=== PATIENT | male | born 1950 | race Caucasian/White ===

== ENCOUNTER 2017-12-08 14:48 | Outpatient (REF) | payer MEDICARE, MEDICAID, SELFPAY ==
[2017-12-08 20:58] LABS: HCT 43.8 % (40.0-50.0); HGB 14.6 g/dL (13.5-17.5); Mean Corp. HGB Concentration 33.3 g/dL (32.0-36.0); Mean Corpuscular Hemoglobin 31.9 pg (27.0-33.0); Mean Corpuscular Volume 95.6 fL (80-95); Mean Platelet Volume 11.1 fL (8.0-11.0); Platelet Count 301 x1000/uL (130-400); RBC 4.58 m/cumm (4.50-6.00); RBC Distribution Width 13.1 % (11.8-14.1); White Blood Cell Count 9.56 k/cumm (4.4-10.8)
[2017-12-08 21:08] LABS: BUN 22 mg/dL (7-18); CREATININE 1.27 mg/dL (0.70-1.30); Calcium 8.8 mg/dL (8.5-10.1); Chloride 103 mmol/L (98-107); Glucose 123 mg/dL (70-100); Potassium 3.5 mmol/L (3.5-5.1); Sodium 139 mmol/L (136-145)
== END 2017-12-08 15:08 ==
LOC: NCHCN 14:48
PROVIDERS: PCP Physician Assistant; Visit Provider Internal Medicine
DX: I10 Essential (primary) hypertension (principal); I26.99 Other pulmonary embolism without acute cor pulmonale; E66.9 Obesity, unspecified
CPT/HCPCS: 80048; 85027

== ENCOUNTER 2018-06-12 08:46 | Outpatient (REF) | payer MEDICARE, SELFPAY ==
[2018-06-12 20:09] LABS: HCT 46.5 % (40.0-50.0); HGB 15.1 g/dL (13.5-17.5); Mean Corp. HGB Concentration 32.5 g/dL (32.0-36.0); Mean Corpuscular Hemoglobin 31.3 pg (27.0-33.0); Mean Corpuscular Volume 96.5 fL (80-95); Mean Platelet Volume 11.3 fL (8.0-11.0); Platelet Count 249 x1000/uL (130-400); RBC 4.82 m/cumm (4.50-6.00); RBC Distribution Width 13.2 % (11.8-14.1); White Blood Cell Count 5.62 k/cumm (4.4-10.8)
[2018-06-12 20:27] LABS: Anion Gap 6.2 mmol/L (3-11); BUN 15 mg/dL (7-18); CO2 29.8 mmol/L (21.0-32.0); CREATININE 0.88 mg/dL (0.70-1.30); Calcium 9.2 mg/dL (8.5-10.1); Chloride 104 mmol/L (98-107); Cholesterol 193 mg/dL (50-200); Glucose 100 mg/dL (70-100); HDL Cholesterol 48 mg/dL (40-60); LDL CHOLESTEROL 115 mg/dL (<100); Potassium 3.8 mmol/L (3.5-5.1); Sodium 140 mmol/L (136-145); TSH 1.78 uIU/mL (0.358-3.74); Triglyceride 98 mg/dL (30-150)
[2018-06-15 16:23] LABS: Testosterone, Free 9.75 ng/dL (3.47-13.0); Testosterone, Total 513 ng/dL (240-950)
== END 2018-06-12 09:06 ==
LOC: NCHCN 08:46
PROVIDERS: PCP Physician Assistant; Visit Provider Internal Medicine
DX: R53.83 Other fatigue (principal); I10 Essential (primary) hypertension; I26.99 Other pulmonary embolism without acute cor pulmonale; Z79.01 Long term (current) use of anticoagulants; N40.2 Nodular prostate without lower urinary tract symptoms
CPT/HCPCS: 80048; 80061; 83721; 84402; 84403; 85027; 84153; 84443

== ENCOUNTER 2018-12-06 17:11 | Outpatient (REF) | payer MEDICARE, SELFPAY ==
--- NOTE | 2018-12-06 16:00 | SKI_PTH ---
PATIENT: Abiodun Conn LOC: [facility] U#:[id number] AGE/SX: 68/M ROOM: RE12/06/[address]: Abiodun Puga : 1950 BED: DIS: 12/06/2018 SPEC #: [id number] RECD: 12/07/18 12:32 STATUS: BEL REStacy #: [id number] MASSIEL: 12/06/18 16:[address]: Abiodnu Puga DEPT: Surgical Specimen RECD BY: Delores Marin ENTERED: 12/07/18 12:33 SP TYPE: MEHREEN RUBIN DR: Guillaume Moore Tissues: 1 - SKIN BIOPSY(SHAVE/PUNCH) Procedures: SKIN LEVEL 4 Comments: [id number]
== END 2018-12-06 17:31 ==
LOC: NCHCN 17:11
PROVIDERS: PCP Physician Assistant; Visit Provider Internal Medicine
DX: L30.8 Other specified dermatitis (principal)
CPT/HCPCS: 88305

== ENCOUNTER 2019-06-06 18:32 | Outpatient (REF) | payer MEDICARE, SELFPAY ==
[2019-06-06 19:42] LABS: Anion Gap 7.9 mmol/L (3-11); BUN 22 mg/dL (7-18); CO2 30.1 mmol/L (21.0-32.0); CREATININE 0.96 mg/dL (0.70-1.30); Chloride 104 mmol/L (98-107); Glucose 94 mg/dL (74-106); LDL CHOLESTEROL 114 mg/dL (<100); Potassium 3.6 mmol/L (3.5-5.1); Sodium 142 mmol/L (136-145)
[2019-06-06 19:50] LABS: HCT 40.8 % (40.0-50.0); Mean Corp. HGB Concentration 34.3 g/dL (32.0-36.0); Mean Corpuscular Hemoglobin 32.7 pg (27.0-33.0); Mean Corpuscular Volume 95.3 fL (80-95); Mean Platelet Volume 10.8 fL (8.0-11.0); Platelet Count 280 x1000/uL (130-400); RBC 4.28 m/cumm (4.50-6.00); RBC Distribution Width 12.8 % (11.8-14.1); White Blood Cell Count 6.95 k/cumm (4.4-10.8)
[2019-06-10 11:19] LABS: PSA, Diagnostic 5.3 ng/mL (0.0-4.5)
== END 2019-06-06 18:52 ==
LOC: NCHCN 18:32
PROVIDERS: PCP Physician Assistant; Visit Provider Internal Medicine
DX: I10 Essential (primary) hypertension (principal); K21.9 Gastro-esophageal reflux disease without esophagitis; R97.20 Elevated prostate specific antigen [PSA]; L30.9 Dermatitis, unspecified
CPT/HCPCS: 80048; 83721; 85027; 84153

== ENCOUNTER 2019-12-19 17:04 | Outpatient (REF) | payer MEDICARE, SELFPAY ==
[2019-12-19 19:36] LABS: HCT 41.6 % (40.0-50.0); HGB 14.1 g/dL (13.5-17.5); MCH 32.6 pg (27.0-33.0); MCHC 33.9 % (32.0-36.0); MCV 96.3 fL (80-95); MPV 11.4 fL (8.0-11.0); Platelet Count 239 10^3/uL (130-400); RBC 4.32 10^6/uL (4.36-5.78); RDW 12.8 % (11.8-14.1); RDW-SD 45.6 fL; WBC 6.83 10^3/uL (4.4-10.8)
[2019-12-19 20:15] LABS: Calcium 9.1 mg/dL (8.5-10.1); TSH 1.13 uIU/mL (0.36-3.74); Vitamin B12 304 pg/mL (193-986)
[2019-12-19 21:08] LABS: Hemoglobin A1C 5.3 % (<5.7)
[2019-12-23 12:40] LABS: PSA, Diagnostic 5.3 ng/mL (0.0-6.5)
[2019-12-23 12:57] LABS: Albumin 53.5 % (55.8-66.1); Comment (See Note); Monoclonal Spike 6.6 % (None Seen); Total Protein 7.1 g/dL (6.3-8.2)
[2019-12-23 15:38] LABS: Immunotyping, Serum (See Note)
== END 2019-12-19 17:24 ==
LOC: NCHCN 17:04
PROVIDERS: PCP Physician Assistant; Visit Provider Internal Medicine
DX: I10 Essential (primary) hypertension (principal); G60.9 Hereditary and idiopathic neuropathy, unspecified; R97.20 Elevated prostate specific antigen [PSA]; R79.89 Other specified abnormal findings of blood chemistry
CPT/HCPCS: 85027; 82310; 82607; 83036; 83655; 83735; 84153; 84165; 84443; 86320

== ENCOUNTER → 2020-02-25 08:44 | Outpatient (BNVA) | payer MEDICARE, SELFPAY | PROVIDERS: PCP Physician Assistant; Referring Provider Internal Medicine; Visit Provider Psychiatry & Neurology Neurology | DX: I95.1 Orthostatic hypotension (principal); R43.2 Parageusia; G62.9 Polyneuropathy, unspecified; M48.061 Spinal stenosis, lumbar region without neurogenic claudication; G90.1 Familial dysautonomia [Riley-Day]; I73.9 Peripheral vascular disease, unspecified; R20.0 Anesthesia of skin; M79.10 Myalgia, unspecified site; I10 Essential (primary) hypertension | CPT/HCPCS: 99205 ==

== ENCOUNTER → 2020-05-04 12:16 | Outpatient (BNVA) | payer MEDICARE, SELFPAY | PROVIDERS: PCP Physician Assistant; Referring Provider Physician Assistant; Visit Provider Psychiatry & Neurology Neurology | DX: I95.1 Orthostatic hypotension (principal); R43.2 Parageusia; G62.9 Polyneuropathy, unspecified; G90.1 Familial dysautonomia [Riley-Day]; R20.0 Anesthesia of skin | CPT/HCPCS: 95910; 99214 ==

== ENCOUNTER 2020-06-11 19:56 | Outpatient (REF) | payer MEDICARE, SELFPAY ==
[2020-06-11 18:47] LABS: Bacteria Negative HPF (Negative); Crystals Negative HPF (Negative); Epithelial Cells Few HPF (Negative); RBC 0-2 HPF (0-2); WBC 0-2 HPF (0-5)
[2020-06-11 18:48] LABS: C & S Indicated? No; Casts 0-2 Hyaline LPF (Negative); Mucus Trace (Negative)
== END 2020-06-11 19:57 | disposition home or self-care (01) ==
LOC: NCHCN 19:56
PROVIDERS: PCP Physician Assistant; Visit Provider Internal Medicine
DX: R31.29 Other microscopic hematuria (principal)
CPT/HCPCS: 81015

== ENCOUNTER → 2020-11-03 12:42 | Outpatient (BNVA) | payer MEDICARE, SELFPAY | PROVIDERS: PCP Physician Assistant; Referring Provider Physician Assistant; Visit Provider Psychiatry & Neurology Neurology | DX: G62.9 Polyneuropathy, unspecified (principal); I95.1 Orthostatic hypotension; G90.1 Familial dysautonomia [Riley-Day]; R20.0 Anesthesia of skin; M19.90 Unspecified osteoarthritis, unspecified site | CPT/HCPCS: 99215 ==

== ENCOUNTER 2020-11-23 17:43 | Outpatient (REF) | payer MEDICARE, SELFPAY | END 2020-11-23 17:44 | disposition home or self-care (01) | LOC: NCHCN 17:43 | PROVIDERS: PCP Physician Assistant; Visit Provider Internal Medicine | DX: R31.9 Hematuria, unspecified (principal) | CPT/HCPCS: 87077; 87086; 87186 ==

== ENCOUNTER 2020-11-26 16:44 | Outpatient (REF) | payer MEDICARE, SELFPAY | END 2020-11-26 16:45 | disposition home or self-care (01) | LOC: NCHCN 16:44 | PROVIDERS: PCP Physician Assistant; Visit Provider Internal Medicine | DX: N39.0 Urinary tract infection, site not specified (principal) | CPT/HCPCS: 87077; 87086; 87186 ==

== ENCOUNTER 2021-01-07 15:12 | Outpatient (REF) | payer MEDICARE, SELFPAY ==
[2021-01-21 13:22] LABS: Testosterone, Free 3.84 ng/dL (3.28-12.2); Testosterone, Total 320 ng/dL (240-950)
== END 2021-01-07 15:13 | disposition home or self-care (01) ==
LOC: NCHCN 15:12
PROVIDERS: PCP Physician Assistant; Visit Provider Internal Medicine
DX: R60.9 Edema, unspecified (principal); D47.2 Monoclonal gammopathy; R63.4 Abnormal weight loss
CPT/HCPCS: 84402; 84403; 82040

== ENCOUNTER 2021-02-18 16:15 | Outpatient (REF) | payer MEDICARE, SELFPAY | END 2021-02-18 16:16 | disposition home or self-care (01) | LOC: NCHCN 16:15 | PROVIDERS: PCP Physician Assistant; Visit Provider Internal Medicine | DX: R31.0 Gross hematuria (principal); N39.0 Urinary tract infection, site not specified | CPT/HCPCS: 87086 ==

== ENCOUNTER 2021-03-24 15:31 | Outpatient (REF) | payer MEDICARE, SELFPAY | END 2021-03-24 15:32 | disposition home or self-care (01) | LOC: NCHCN 15:31 | PROVIDERS: PCP Physician Assistant; Visit Provider Nurse Practitioner Family | DX: J04.0 Acute laryngitis (principal) | CPT/HCPCS: 87070 ==

== ENCOUNTER 2021-04-14 16:25 | Outpatient (REF) | payer MEDICARE, SELFPAY ==
--- OUTSIDE RECORDS SUMMARY | 2021-04-14 16:30 | XMS_ITS | Encounter Summary ---
:1950 Author Care Team Providers Name Role Phone Abiodun Puga MD Primary Care Provider [phone] Albin Gonzalez General Surgeon [phone] Alex Vail MD Urologist [phone] Reason for Visit consent obtained Assessment and Plan Assessment Note Await cytology. Initiate 5 VERONICA. 1. Hira hematuria Recurrent gross painless hemat uria which appears to localize to friable BPH. Options include a 5 alpha reductase inhibitor or prostate surgery. We will start with the former. Side effects discussed. Hopefully over time, he will get some downsizing with improvement in symptoms. We will have to assess his future PSA's with regard to a 50% anticipated reduction du e to the 5 VERONICA. Should he develop ongoing bleeding or significant clot retention, which he is at risk for, he should call or page. ? finasteride 5 mg tablet ? levofloxacin 250 mg tablet ? phenazopyridine 95 mg tabl et 2. Recurrent urinary tract infec tion 1 or 2 UTI's in the last year. Phimosis and BPH likely contributory. He should consider dorsal slit or circumcis ion. 3. Lower urinary tract symptoms due to benign prostatic hypertrophy Moderately severe mixed lower urinary tract symptoms, likely multifactorial. Significant BPH with mayra dder outlet obstruction. Friable BPH likely enhancing irritative symptoms. Likely ne uropathic component related to his polyneuropathy. Initiate 5 alpha reducta se inhibitor, to help with the bleeding, and hopefully over time, the symptoms. Shoul d bleeding continue her symptoms progress, he would likely require a laser prostatecto my event what appears to be some sort of propensity towards bleeding and a probab le need for perioperative VTE prophylaxis given history of postoperative PE. 4. Raised prostate specific anti gen Mild PSA elevation, lower than 2009- baseline. Occult prostate cancer is unlikely an explanation for his weight l oss. 5. Phimosis Severe phimosis. Noncompliant with recommended clobetasol therapy. He should consider a dorsal slit or circumc ision if he could obtain preoperative clearance. ? urinalysis, dipstick, refl ex micro ? cytology, non-gynecologica l, unspecified specimen - per friable prostate 6. Unintentional weight loss No evidence of occult prostate cancer. Discussion Note: None recorded.Patient educational handouts: No information available. Plan of Care Reminders Provider Appointments Or 15 on or around Albin Lambert charles 03/14/2023 MD Lisa Lab Urinalysis, 01/15/2021 P_uro logy Dipstick, Reflex Micro ? Cytology, 01/15/2021 [facility] eduardo Non-gynecological, Hospital Lab Unspecified Specimen (Internal) Referral None ? ? recorded. Procedures None ? ? recorded. Surgeries None ? ? recorded. Imaging None ? ? recorded. Medications Name Start Date ? ? betamethasone dipropionate 0.05 % topical cream ? APPLY A THIN LAYER TO THE AFFECTED AREA(S) BY TOPICAL ROUTE TWICE DAILY Centrum Silver ? clarithromycin 500 mg tablet ? Take 1 tablet every 12 hours by oral route. clobetasol 0.05 % topical cream ? APPLY A THIN LAYER TOPICALLY TO TO THE AFFECTED AREA TWICE DAILY finasteride 5 mg tablet ? Take 1 tablet every day by oral route for 90 days. hydroxychloroquine 100 mg tablet ? Take 1 tablet every day by oral route. levofloxacin 250 mg tablet ? 2 tabs now phenazopyridine 95 mg tablet ? 2 tabs now tamsulosin 0.4 mg capsule ? Take 1 capsule every day by oral route. Medications Administered Name Date ? ? levofloxacin 250 mg tablet 8340-81-83N05:43:46 2 tabs now phenazopyridine 95 mg tablet [id number]:44: 30 2 tabs now Vitals Height Blood Pressure 5 ft 6.54 in 170/102 mm[Hg] Results Lab Results Date Name Specimen Result Interpretation Description Value Range Status Address ? 01/15/2021 Cytology, TISS ? Report (see ? Final No rth Non-gynecological, below) Country Unspecified Specimen Hospital Lab (Internal) : [address] 01/15/2021 Urinalysis, Urine ? Color Brown ? ? P _urology: Dipstick, Reflex clean [address] [facility] ? ? Urine ? Appearance Cloudy ? ? P_uro logy: clean [address] [facility] ? ? Urine ? Glucose Normal ? ? [facility]urolog y: [facility] ? ? Urine ? Bilirubin Negative ? ? P_ur ology: clean [address] [facility] ? ? Urine ? Ketones Negative ? ? P_urol ogy: clean [address] [facility] ? ? Urine ? Specific 1.025 ? ? P_urolo gy: clean [place] [address] [facility] [facility] ? ? Urine ? Blood Large ? ? P[facility]urology: clean [facility] ? ? Urine ? Ph 7.5 ? ? P[facility]urology: clean [facility] ? ? Urine ? Protein 3+ ? ? P_urolog y: clean [address] [facility] ? ? Urine ? Urobilinogen 0.2 ? ? P_u rology: clean [address] [facility] ? ? Urine ? Nitrite negative ? ? P_urol ogy: clean [address] [place] ? ? Urine ? Leukocyte Negative ? ? P_ur ology: clean [place] [address] [facility] Allergies Code Code System Name Reaction Severity Onset 723 RxNorm Amoxicillin Rash Mild to Moderate ? Penicillins Rash Mild to Moderate ? Problems Name Status Onset Date Source ? Pulmonary Embolism Active 01/22/2019 ? 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 Idiopathic Chronic Neuropathy Active 07/06/2020 ? Polyneuropathy Active 07/06/2020 ? Orthostatic Hypotension Active 07/06/2020 ? Osteoarthritis Active 07/06/2020 ? Taste Sense Altered Active 07/06/2020 ? Anesthesia of Skin Active 07/06/2020 ? Familial Dysautonomia Active 07/06/2020 ? Uses Two Crutches for Walking Active 12/14/2020 ? Acariasis Active ? History Carpal Tunnel Syndrome Active ? History Visual Disturbance Active ? History Benign Essential Hypertension Active ? Hi story Localized, Primary Osteoarthritis Active ? History Osteoarthritis of Knee Active ? History Joint Pain Active ? History Elbow Joint Pain Active ? History Joint Pain in Ankle and Foot Active ? His tory Backache Active ? History Raised Prostate Specific Antigen Active ? History Superficial Foreign Body in Forearm Active ? History Artificial Knee Joint Present Active ? Hi story Evaluation Procedure Active ? History Procedure on Joint Active ? History Procedure by Method Active ? History Pain in Left Knee Active ? History Closed Fracture of Right Femur Active ? H istory Spontaneous Rupture of Flexor Tendons Active ? History Procedures Date Name Performed by ? 03/14/2018 Colonoscopy Information not avai lable Notes: diverticular disease, polyp of colon ? Removal of Inferior Vena Caval Filter In formation not available ? Insertion of Inferior Vena Caval Informa tion not available Filter ? Carpal Tunnel Surgery Information not av ailable ? Knee Replacement Information not avai lable Notes: right side 2016 ? Hip Replacement Information not avai lable Notes: bilateral Vaccine List Vaccine Type influenza, seasonal, injectable 03/10/2010?0.5 mL influenza, seasonal, injectable, preserv ative free 03/09/2011 Tdap 03/10/2010?0.5 mL Social History Tobacco Smoking Status Former Smoker Notes: quit in 10 years ago, smokes 30 years 1ppw Are you currently employed? Y What is your code status? 0 How much tobacco do you chew? none What was the date of your most 03/14/2018 recent tobacco screening? Do you have an advanced Y directive? Do you or have you ever used Never used electronic e-cigarettes or vape? cigarettes In the 14 days before symptom N onset, have you had close contact with a laboratory-confirmed COVID-19 while that case was ill? 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 children What is your level of alcohol None Notes: pt reports not consumption? having consumed alco hol for couple of years Screened for Covid-19 Y Do you or have you ever used Never used smokeless tobacco smokeless tobacco? Which illicit or recreational none drugs have you used? Have you been to an area known N to be high risk for COVID-19? Drug Use N Have you recently traveled N abroad? N Family History Relation Problem Onset Age of Age Notes Father Arthritis (No N/A (No Notes) Information) Paternal Grandmother Arthritis (No N/A (No Not es) Information) Paternal Uncle Arthritis (No N/A (No Notes) Information) Paternal Aunt Arthritis (No N/A (No Notes) Information) Sister Neuropathy (No N/A (No Notes) Information) Functional Status Unknown. Past Encounters 01/15/2021 Hira Hematuria; Recurrent Urinary Tract Infection; Lower Urinary Tract Symptoms Due to Benign Prostatic Hypertrophy; Raised Prostate Specific Antigen; Phimosis; Unintentional Weight Loss Alex Vail MD: [address] [facility] [place] [address], Ph. History of Present Illness Note: <div>He returns for follow up on his phimosis after initiating topical therapy, and for cystoscopy in evaluation of his gross and microscopic hematuria.</div><div>
</div><div>Today's urine shows large blood. He said he has had gross hematuria as recently as .</div><div>
</div><div>His CT showed no upper tract lesions but did show an enlarged prostate and a thick walled bladder.</div><div>
</div>PSA 12/14 was 4.3, lower than prior baseline in 2010-02 so not likely that prostate cancer is the cause for his weight loss.<div>
</div><div>He did not reliably use the clobetasol for his foreskin. He says it is difficult to get it there.</div><div>
</div><div>He says his Eliquis was stopped this summer and that he is not on any blood thinners.
<div>
</div><div>His VEG F was negative suggesting against POEMS Syndrome as an explanation for his neuropathy and weight loss.</div><div>
</div><div>Poked himself in the eye last night. He says the skin is very sensitive. On evaluation he has conjunctival hemorrhage on the left and multiple skin lesions bleeding.
</div><div>
</div><div>Med list and problem list are updated.</div></div>Review of Systems: ROS as noted in the HPI Review of Systems None recorded. Physical Exam ? Notes: Depressed affect, no apparen t distress.

Genital exam shows an uncircumcised phallus with s evere, unretractable phimosis.
--- OUTSIDE RECORDS SUMMARY | 2021-04-14 16:30 | XMS_ITS ---
:1950 Author Care Team Providers Name Role Phone SYLVIE SMITH MD Primary Care Provider [phone] ANITA SCOTT General Surgeon [phone] MELANIE VAIL MD Urologist [phone] Allergies Code Code System Name Reaction Severity Status Onset 723 RxNorm Amoxicillin Rash Mild to Active ? Moderate Penicillins Rash Mild to Active ? Moderate Medications Name Status Start Date Stop Date ? ? aspirin 81 mg tablet,delayed release Completed ? 12/14/2020 Take 1 tablet every day by oral route. atenolol 50 mg tablet Completed ? 07/06/2020 betamethasone dipropionate 0.05 % topical cream Active ? Not available APPLY A THIN LAYER TO THE AFFECTED AREA(S) BY TOPICAL ROUTE TWI CE DAILY Centrum Silver Active ? Not available clarithromycin 500 mg tablet Active ? Not available Take 1 tablet every 12 hours by oral route. clobetasol 0.05 % topical cream Active ? Not available APPLY A THIN LAYER TO THE AFFECTED AREA(S) BY TOPICAL ROUTE 2 T IMES PER DAY Eliquis 2.5 mg tablet Completed ? 12/14/2020 finasteride 5 mg tablet Active ? Not avai lable Take 1 tablet every day by oral route for 90 days. gabapentin 300 mg capsule Completed ? 2020 Take 1 capsule 3 times a day by oral route. hydroxychloroquine 100 mg tablet Active ? Not available Take 1 tablet every day by oral route. Keflex 250 mg capsule Completed 08/25/2010 08/27/2010 1 (one) Cap: 4 times a day levofloxacin 250 mg tablet Active ? Not a vailable 2 tabs now naproxen 500 mg tablet Completed 05/12/2006 7 1 (one) Tablet: Twice daily nifedipine ER 30 mg tablet,extended release Completed ? 12/14/2020 Take 1 tablet every day by oral route. nifedipine ER 60 mg Completed ? 07/06/2020 tablet,extended release Percocet 5 mg-325 mg tablet Unknown 12/11/2006 Not available 1 (one) Tablet: TID permethrin 5 % topical cream Completed 03/25/2013 1 Cream: x1, repeat in a week phenazopyridine 95 mg tablet Active ? Not available 2 tabs now tamsulosin 0.4 mg capsule Active ? Not av ailable Take 1 capsule every day by oral route. torsemide 20 mg tablet Completed ? 1 warfarin 2 mg tablet Completed ? 12/27/2017 Problems Name Status Onset Date Source ? [...] Replacement Information not avai lable Notes: bilateral Results Lab Results Date Name Specimen Result Interpretation Description Value Range Status Address ? 01/15/2021 Cytology, TISS ? Report (see below) ? [place] Non-gynecological, Country Unspecified Hospi jac Lab Specimen (Interna l): [address] 01/15/2021 Urinalysis, Urine ? Color Brown ? ? P _urology: Dipstick, Reflex clean [address] [place], [place] ? ? Urine ? Appearance Cloudy ? ? P_uro logy: clean [address] [place], [place] ? ? Urine ? Glucose Normal ? ? P_urolog y: clean [address] [place], [place] ? ? Urine ? Bilirubin Negative ? ? P_ur ology: clean [address] [place], [place] ? ? Urine ? Ketones Negative ? ? P_urol ogy: clean [address] [place], [place] ? ? Urine ? Specific 1.025 ? ? P_urolo gy: clean [place] [address] [facility], [place] ? ? Urine ? Blood Large ? ? P_urology: clean [address] [place], [place] ? ? Urine ? Ph 7.5 ? ? P_urology: clean [address] [place], [place] ? ? Urine ? Protein 3+ ? ? P_urolog y: clean [address] [place], [place] ? ? Urine ? Urobilinoge 0.2 ? ? P_ur ology: clean n [address] [place], [place] ? ? Urine ? Nitrite negative ? ? P_urol ogy: clean [address] [place], [place] ? ? Urine ? Leukocyte Negative ? ? P_ur ology: clean [place] [address] Medic [address] [place], [place] 12/14/2020 Send Out, Misc. MISC ? S/O vascular ? [facility] endothelial [facility] L ab factor (Internal) : [address] ? ? MISC ? Status sent to ? Final [facility] lab Hospital L ab (Internal) : [address] 12/14/2020 PSA, Serum or S High PSA, Total 4.3 NG/mL 0. Final [place] Plasma 0- Country 4. Hospital L ab 0 (Internal) : NG [address] 12/14/2020 Go-roch Frozen MIS ? [id number] see below ? [facility] 12/17/2020 Countr y 02:42 pm Hospital Lab (Internal) : [address] 12/14/2020 Bladder Scan (PROC) ? Date and 12/14/2020 ? ? P[facility]urology: Time 1030 [facility] ? ? ? Amount in 2mL ? ? P_urol ogy: Bladder [facility] 12/14/2020 Urinalysis, Urine ? Color Kalani ? ? P _urology: Dipstick, Reflex clean [address] [facility] ? ? Urine ? Appearance Clear ? ? P_uro logy: clean [address] [facility] ? ? Urine ? Glucose Normal ? ? P_urolog y: clean [address] [place] [employer], [place] ? ? Urine ? Bilirubin Small ? ? P_urol ogy: clean [address] [employer], [place] ? ? Urine ? Ketones Trace ? ? P_urolog y: clean [address] [place] [employer], [place] ? ? Urine ? Specific 1.030 ? ? P_urolo gy: clean [place] [address] [employer] [facility] ? ? Urine ? Blood Small ? ? P_urology: clean [facility] ? ? Urine ? Ph 6.0 ? ? P_urology: clean [address] [facility] ? ? Urine ? Protein 3+ ? ? P_urolog y: clean [address] [facility] ? ? Urine ? Urobilinoge 0.2 ? ? P_ur ology: clean n [address] [facility] ? ? Urine ? Nitrite negative ? ? P_urol ogy: clean [facility] ? ? Urine ? Leukocyte Negative ? ? P_ur ology: clean [place] [address] [facility] 07/10/2020 Pathology Study TISS ? Report (see below) ? [facility] L ab (Internal) : [address] 03/14/2018 Pathology Study TISS - Report results ? Fi nal [facility] L ab (Internal) : [address] 10/19/2016 Venipuncture BLD ? Venpn* ? ? [facility] L ab (Internal) : [address] 10/19/2016 Prothrombin Time BLD High Pt 32.8 S 9. Fin al [place] [id number] Hospital L ab .7 (Internal) : S [address], [place] ? ? BLD ? Inr 3.2 ? Final [facility] Hospital L ab (Internal) : [address] [place] 08/26/2016 Venipuncture BLD ? Venpn* ? ? Final [facility] Hospital L ab (Internal) : [address], [place] 08/26/2016 Prothrombin Time BLD High Pt 34.4 S 9. [place] [id number] Hospital L ab .7 (Internal) : S [address], [place] ? ? BLD ? Inr 3.4 ? Final [facility] Hospital L ab (Internal) : [address], [place] 05/25/2016 Venipuncture BLD ? Venpn* ? ? Final [facility] Hospital L ab (Internal) : [address], [place] 05/25/2016 Prothrombin Time BLD High Pt 29.[address] L ab .7 (Internal) : S [address] ? ? BLD ? Inr 2.9 ? Final [facility] L ab (Internal) : [address], [place] Past Encounters 01/15/2021 Hira Hematuria; Recurrent Urinary Tract Infection; Lower Urinary Tract Symptoms Due to Benign Prostatic Hypertrophy; Raised Prostate Specific Antigen; Phimosis; Unintentional Weight Loss Melanie Vail MD: [address] [place] [phone], Ph. 12/14/2020 Hira Hematuria; Recurrent Urinary Tract Infection; Lower Urinary Tract Symptoms Due to Benign Prostatic Hypertrophy; Raised Prostate Specific Antigen; Phimosis; Unintentional Weight Loss; Axonal Neuropathy Melanie Vail MD: [address] [place] [phone], Ph. 07/10/2020 Skin Lesion Anita Scott MD: [address] [place] [phone], Ph. Social History Tobacco Smoking Status Former Smoker Notes: quit in 10 years ago, smokes 30 years 1ppw Vaccine List Vaccine Type influenza, seasonal, injectable 03/10/2010?0.5 mL influenza, seasonal, injectable, preserv ative free 03/09/2011 Tdap 03/10/2010?0.5 mL Plan of Care Reminders Provider Appointments None ? ? recorded. Lab None ? ? recorded. Referral None ? ? recorded. Procedures None ? ? recorded. Surgeries None ? ? recorded. Imaging None ? ? recorded. Vitals 01/15/2021 08:00AM Office 20 Height Blood Pressure 169.01 cm 170/102 mm[Hg] 12/14/2020 10:00AM Acute 20 Height Weight BMI Blood Pressure 169.01 cm 77.84 kg 27.2 kg/m2 122/68 mm[Hg] 07/10/2020 12:45PM Office 15 Height 169.01 cm 05/04/2020 Height Weight BMI Blood Pressure 169.01 cm 89.35 kg 31.3 kg/m2 108/66 mm[Hg] 05/31/2016 Height Weight Blood Pressure 172.72 cm 116.53 kg 152/68 mm[Hg] 09/14/2015 Height Weight Blood Pressure 172.72 cm 102.06 kg 179/89 mm[Hg] 07/21/2015 Height Weight Blood Pressure 172.72 cm 99.79 kg 140/90 mm[Hg] 06/30/2015 Height Weight Blood Pressure 172.72 cm 99.79 kg 158/90 mm[Hg] 06/09/2015 Height Weight Blood Pressure 172.72 cm 99.79 kg 198/82 mm[Hg] 05/19/2015 Height Weight Blood Pressure 172.72 cm 99.79 kg 156/60 mm[Hg] 04/28/2015 Height Weight Blood Pressure 172.72 cm 99.79 kg 182/82 mm[Hg] 04/21/2015 Height Weight Blood Pressure 172.72 cm 99.79 kg 200/70 mm[Hg] 04/02/2015 Height Weight Blood Pressure 172.72 cm 99.79 kg 190/100 mm[Hg] 03/24/2015 Height Weight Blood Pressure 172.72 cm 99.79 kg 160/90 mm[Hg] 03/05/2015 Height Weight Blood Pressure 172.72 cm 99.79 kg 134/76 mm[Hg] 02/24/2015 Height Weight Blood Pressure 172.72 cm 99.79 kg 128/78 mm[Hg] 12/25/2014 Height Weight Blood Pressure 172.72 cm 99.79 kg 140/72 mm[Hg] 09/02/2014 Height Weight Blood Pressure 172.72 cm 99.79 kg 164/76 mm[Hg] 03/25/2013 Height Weight Blood Pressure 172.72 cm 101.02 kg 142/76 mm[Hg] 01/09/2013 Height Weight Blood Pressure 170.82 cm 98.47 kg 128/76 mm[Hg] 04/20/2012 Height Weight Blood Pressure 170.82 cm 95.25 kg 124/78 mm[Hg] 03/20/2012 Height Weight Blood Pressure 170.82 cm 95.25 kg 152/76 mm[Hg] 03/14/2012 Height Weight Blood Pressure 170.82 cm 95.25 kg 140/64 mm[Hg] 08/05/2011 Height Weight Blood Pressure 172.72 cm 102.29 kg 172/86 mm[Hg] 05/03/2011 Height Weight Blood Pressure 172.72 cm 102.29 kg 153/80 mm[Hg] 03/09/2011 Height Weight Blood Pressure 172.72 cm 102.29 kg (1) 126/70 mm[Hg] (2) 158/68 mm[Hg] 09/08/2010 Height Weight Blood Pressure 172.72 cm 100.83 kg 158/64 mm[Hg] 03/10/2010 Height Weight Blood Pressure 172.72 cm 100.24 kg 120/76 mm[Hg] 09/02/2009 Weight Blood Pressure 99.79 kg 124/74 mm[Hg] 03/16/2009 Weight Blood Pressure 102.51 kg 120/74 mm[Hg] 12/11/2007 Weight Blood Pressure 100.24 kg (1) 132/70 mm[Hg] (2) 138/74 mm[Hg] 12/11/2006 Weight Blood Pressure 103.87 kg (1) 130/62 mm[Hg] (2) 130/68 mm[Hg] 05/12/2006 Weight Blood Pressure 100.7 kg 112/70 mm[Hg] 02/06/2006 Weight Blood Pressure 95.25 kg 140/82 mm[Hg] 11/01/2005 Weight Blood Pressure 95.25 kg (1) 132/90 mm[Hg] (2) 130/80 mm[Hg] 08/24/2005 Weight Blood Pressure 95.25 kg (1) 156/74 mm[Hg] (2) 152/76 mm[Hg] 07/06/2005 Weight Blood Pressure 99.34 kg (1) 156/78 mm[Hg] (2) 160/72 mm[Hg] 05/11/2005 Weight Blood Pressure 97.07 kg 170/88 mm[Hg] 02/09/2005 Weight Blood Pressure 94.8 kg (1) 152/90 mm[Hg] (2) 156/94 mm[Hg] 01/05/2005 Weight Blood Pressure 97.07 kg 158/84 mm[Hg]
[2021-04-14 21:11] LABS: Abs Immature Grans 0.03 10^3/uL (0.0-0.06); Absolute Basophil Count 0.05 10^3/uL (0.0-0.2); Absolute Eosinophil Count 0.24 10^3/uL (0.0-0.7); Absolute Lymphocyte Count 0.68 10^3/uL (1.2-3.4); Absolute Monocyte Count 0.51 10^3/uL (0.1-0.8); Basophils % 0.8; Eosinophils % 3.6; HCT 41.5 % (40.0-50.0); HGB 13.9 g/dL (13.5-17.5); Immature Grans % 0.5; Lymphocytes % 10.3; MCH 33.1 pg (27.0-33.0); MCHC 33.5 % (32.0-36.0); MCV 98.8 fL (80-95); Monocytes % 7.7; Neutrophils % 77.1; Nucleated RBC 0 %; Platelet Count 202 10^3/uL (130-400); RDW 13.1 % (11.8-14.1); RDW-SD 47.5 fL; WBC 6.61 10^3/uL (4.4-10.8)
[2021-04-14 21:23] LABS: ALT 35 U/L (16-63); AST 40 U/L (15-37); Albumin 2.6 g/dL (3.4-5.0); Alkaline Phosphatase 141 U/L (46-116); Anion Gap 1.7 mmol/L (3-11); BUN 19 mg/dL (7-18); Bilirubin, Total 0.9 mg/dL (0.2-1.0); CO2 36.3 mmol/L (21.0-32.0); CREATININE 0.8 mg/dL (0.70-1.30); Calcium 8.8 mg/dL (8.5-10.1); Chloride 98 mmol/L (98-107); Glucose 99 mg/dL (74-106); Potassium 3.7 mmol/L (3.5-5.1); Sodium 136 mmol/L (136-145); Total Protein 6.3 g/dL (6.4-8.2)
== END 2021-04-14 16:26 | disposition home or self-care (01) ==
LOC: NCHCN 16:25
PROVIDERS: PCP Physician Assistant; Visit Provider Physician Assistant
DX: R60.1 Generalized edema (principal)
CPT/HCPCS: 80053; 85025